=== PATIENT | male | born 1960 | race Caucasian/White ===

== ENCOUNTER 2017-04-16 05:09 | Inpatient (IN) | payer OTHER ==
[~2017-04-16] VITALS: Ht 182.9 cm; Wt 152.4 kg
[~2017-04-16 05:09] MED LIST: ACETAMINOPHEN325 M1 PO; ADULT LOW DOSE81 M1 PO; ALLOPURINOL300 MG PO; AMBIEN5 MG PO; AMLODIPINE BESYL5 MG PO; APIDRA100 UNIT/1 SC; ASPIR 8181 M1 PO; ATORVASTATIN CA10 MG PO; AZOPT 1% O200 DROP/1 BOTH EYES; BENADRYL ITCH28.3 GM TP; BREO ELLIPTA 21 EACH IH; CALCIUM 600 +1 EAC2 PO; CELEXA10 MG PO; CELEXA20 MG PO; CLONAZEPAM0.5 MG PO; COLCRYS0.6 MG PO; COZAAR100 MG PO; CYANOCOBALAM1000 MCG PO; DILAUDID2 MG PO; DULCOLAX10 MG PR; ENDOCET 7.5-321 EACH PO; ENEMA133 M2 PR; FAMOTIDINE40 MG PO; FENOFIBRATE145 M1 PO; FENOFIBRATE160 M1 PO; FENTANYL1 EAC5 TD; FERROUS SULFAT325 MG PO; FLEXERIL10 MG PO; GABAPENTIN100 MG PO; GABAPENTIN300 MG PO; GLIMEPIRIDE4 MG PO; GRALISE300 MG PO; JANUVIA100 MG PO; LANTUS 10100 UNITS/ SC; LANTUS 3 M100 UNITS1 SC; LISINOPRIL20 MG PO; LOSARTAN POTASS50 MG PO; METFORMIN HCL1000 M1 PO; MILK OF MAGN PO; MOBIC7.5 MG PO; MOTRIN800 MG PO; NAPROXEN500 M1 PO; NORCO 5/3251 TABLET PO; NORTRIPTYLINE H25 MG PO; OMEPRAZOLE20 MG PO; ONDANSETRON HCL4 MG PO; OXYBUTYNIN CHLO10 MG PO; PANTOPRAZOLE SO40 MG PO; POLYETHYLENE GL17 GM PO; PRAVACHOL40 MG PO; PRAVASTATIN SOD80 MG PO; PROTONIX40 MG PO; QUETIAPINE FUMA50 MG PO; RESTASIS 01 DROP/0.4 BOTH EYES; SENNA8.6 MG PO; SERTRALINE HCL50 MG PO; SKELAXIN800 MG PO; SPIRIVA1 INHALATI IH; TORADOL10 MG PO; ULTRAM50 MG PO; VENLAFAXINE HCL75 MG PO; VENTOLIN HFA18 GM IH; VOLTAREN 1% GE100 GM TP; ZESTRIL2.5 MG PO; ZUPLENZ4 MG PO; ZYLOPRIM300 MG PO
[2017-04-16 05:27] LABS: POINT-OF-CARE METER ID UU13113778
[2017-04-16 06:24] LABS: MCH 30.2 PG (29.0-34.0); MCHC 33.9 G/DL (30.0-36.0); MEAN PLAT.VOLUME 10.8 uM^3 (9.0-12.4); PLATELET COUNT 260 K/uL (156-360); RBC DIS.WIDTH-CV 13.2 % (11.8-14.6); RBC DIS.WIDTH-SD 42.7 % (39-53); RED BLOOD COUNT 5.17 M/uL (4.00-5.50); WHITE BLOOD COUNT 9.9 K/uL (4.1-10.2)
[2017-04-16] MEDS ORDERED: NEURONTIN300 MG PO (06:25)
[2017-04-16] MEDS ORDERED: LANTUS 3 M100 UNITS1 SQ (06:28)
[2017-04-16] MEDS ORDERED: FINASTERIDE5 MG PO (06:31)
[2017-04-16] MEDS ORDERED: NOVOLOG 10100 UNITS/ SQ (06:31)
[2017-04-16 06:32] LABS: CHLORIDE 102 mEq/L (99-109); POTASSIUM 3.9 mEq/L (3.7-5.4); SODIUM 139 mEq/L (136-147)
[2017-04-16] MEDS ORDERED: ASPIRIN81 M2 PO (06:32)
[2017-04-16 06:34] LABS: GLUCOSE 206 mg/dL (70-99)
[2017-04-16 06:35] LABS: ANION GAP 13 MEQ/L (2-14)
[2017-04-16 06:36] LABS: TOTAL BILIRUBIN 0.4 mg/dL (0.0-1.0)
[2017-04-16 06:37] LABS: ALKALINE PHOSPHATASE 75 IU/L (3-129)
[2017-04-16 06:38] LABS: GFR ESTIMATE (CALCULATED) 55 mL/min/
[2017-04-16 06:39] LABS: UREA NITROGEN (BUN) 19 mg/dL (9-23)
[2017-04-16 06:41] LABS: LIPASE 18 U/L (1.0-51.0)
[2017-04-16 07:02] LABS: TROP-I INTERPRETATION NEGATIVE; TROPONIN-I < 0.01 ng/mL (0.0-0.30)
[2017-04-16 07:04] LABS: ADD MIUA? YES; BILIRUBIN NEGATIVE; BLOOD NEGATIVE; COLOR YELLOW ((YELLOW)); GLUCOSE (STRIP) >=500; KETONES NEGATIVE; LEUKOCYTES NEGATIVE; NITRITE NEGATIVE; PROTEIN (STRIP) 100; SPECIFIC GRAVITY 1.018 (1.000-1.030); UROBILINOGEN 0.2 MG/DL (0.2-1.0)
[2017-04-16 07:14] LABS: BACTERIA NONE SEEN /HPF; EPITHELIAL CELLS NONE SEEN /HPF; MUCUS TRACE /LPF; RED BLOOD CELLS 0-5 /HPF (0-5); UCUL ADDED? NO; WHITE BLOOD CELLS 0-5 /HPF (0-5)
[2017-04-16 08:12] LABS: CARBON DIOXIDE (BICARBONATE) 30.3 MEQ/L (20-31)
[2017-04-16 10:20] VITALS: BP 173/91
[2017-04-16] MEDS ORDERED: LOTRIMIN AF24 GM TP (14:52)
[2017-04-16 14:57] VITALS: BP 166/77
[2017-04-16 18:13] VITALS: BP 178/82
[2017-04-16 19:55] VITALS: BP 136/80
[2017-04-16 23:08] VITALS: BP 129/77
[2017-04-16 23:35] LABS: POINT-OF-CARE METER ID UU13113725
[2017-04-17 04:09] VITALS: BP 109/56
[2017-04-17 06:44] LABS: HEMATOCRIT 42.7 % (38.0-50.0); MCH 31.5 PG (29.0-34.0); MCHC 34.2 G/DL (30.0-36.0); MCV 92.2 FL (86-99); MEAN PLAT.VOLUME 11.1 uM^3 (9.0-12.4); PLATELET COUNT 245 K/uL (156-360); RBC DIS.WIDTH-CV 13.9 % (11.8-14.6); RBC DIS.WIDTH-SD 46.7 % (39-53); RED BLOOD COUNT 4.63 M/uL (4.00-5.50); WHITE BLOOD COUNT 6.6 K/uL (4.1-10.2)
[2017-04-17 07:10] LABS: ANION GAP 8 MEQ/L (2-14); CHLORIDE 106 MEQ/L (99-109); GFR ESTIMATE (CALCULATED) 41 mL/min/; GLUCOSE 224 mg/dL (70-99); POTASSIUM 4.6 MEQ/L (3.7-5.4); SAMPLE HEMOLYSIS CHECK 0; SAMPLE ICTERIC CHECK 0; SAMPLE LIPEMIA CHECK 0; SODIUM 143 MEQ/L (136-147); UREA NITROGEN (BUN) 23 mg/dL (9-23)
[2017-04-17 08:51] VITALS: BP 131/69
[2017-04-17 09:35] LABS: Estimated Average Glucose 232 mg/dL (70-123); HEMOGLOBIN A1c (GLYCOHEMOGLOB) 9.7 % HGB (Below 5.7)
[2017-04-17 11:46] VITALS: BP 118/78
[2017-04-17 11:52] LABS: POINT-OF-CARE METER ID UU13113725
[2017-04-17 15:43] VITALS: BP 149/69
[2017-04-17 15:49] LABS: POINT-OF-CARE METER ID UU13113725
[2017-04-17 20:16] VITALS: BP 142/65
[2017-04-17 22:56] VITALS: BP 111/51
[2017-04-17 23:26] LABS: POINT-OF-CARE METER ID UU13113725
[2017-04-18 05:34] LABS: POINT-OF-CARE METER ID UU13113725
[2017-04-18 08:13] VITALS: BP 147/69
[2017-04-18 09:36] LABS: ANION GAP 7 MEQ/L (2-14); CHLORIDE 109 MEQ/L (99-109); GFR ESTIMATE (CALCULATED) 47 mL/min/; GLUCOSE 180 mg/dL (70-99); POTASSIUM 4.1 MEQ/L (3.7-5.4); SAMPLE HEMOLYSIS CHECK 0; SAMPLE ICTERIC CHECK 0; SAMPLE LIPEMIA CHECK 0; SODIUM 142 MEQ/L (136-147); UREA NITROGEN (BUN) 16 mg/dL (9-23)
[2017-04-18 12:17] VITALS: BP 159/87
[2017-04-18 16:17] VITALS: BP 148/72
[2017-04-18 20:19] VITALS: BP 153/72
[2017-04-18 23:03] VITALS: BP 143/65
[2017-04-19 07:26] LABS: POINT-OF-CARE METER ID UU13113725
[2017-04-19 07:39] VITALS: BP 170/82
[2017-04-19 08:00] LABS: HEMATOCRIT 39.8 % (38.0-50.0); MCH 31.3 PG (29.0-34.0); MCHC 34.2 G/DL (30.0-36.0); MCV 91.7 FL (86-99); MEAN PLAT.VOLUME 10.6 uM^3 (9.0-12.4); PLATELET COUNT 234 K/uL (156-360); RBC DIS.WIDTH-CV 13.4 % (11.8-14.6); RBC DIS.WIDTH-SD 45.7 % (39-53); RED BLOOD COUNT 4.34 M/uL (4.00-5.50); WHITE BLOOD COUNT 6.9 K/uL (4.1-10.2)
[2017-04-19 08:20] LABS: ANION GAP 7 MEQ/L (2-14); CHLORIDE 107 MEQ/L (99-109); POTASSIUM 4.2 MEQ/L (3.7-5.4); SAMPLE HEMOLYSIS CHECK 0; SAMPLE ICTERIC CHECK 0; SAMPLE LIPEMIA CHECK 0; SODIUM 139 MEQ/L (136-147)
[2017-04-19 08:26] LABS: GFR ESTIMATE (CALCULATED) 51 mL/min/; GLUCOSE 190 mg/dL (70-99); UREA NITROGEN (BUN) 11 mg/dL (9-23)
[2017-04-19 10:31] VITALS: BP 185/90
[2017-04-19 11:50] LABS: POINT-OF-CARE METER ID UU13113725
[2017-04-19] MEDS ORDERED: TAMSULOSIN HCL0.4 MG PO (12:10)
[2017-04-19] MEDS ORDERED: AMLODIPINE BESYL5 MG PO (12:10)
== END 2017-04-19 15:53 | disposition home health service (06) | DRG 389 ==
LOC: EME 05:09 → EDOF 08:43 → ENRESERV 08:44 → 5EAST 09:57
PROVIDERS: Internal Medicine; Nurse Practitioner Adult Health; Physician Assistant
DX: K56.60 Unspecified intestinal obstruction (principal); I12.9 Hypertensive chronic kidney disease with stage 1 through stage 4 chronic kidney disease, or unspecified chronic kidney disease; N18.2 Chronic kidney disease, stage 2 (mild); E11.22 Type 2 diabetes mellitus with diabetic chronic kidney disease; E11.65 Type 2 diabetes mellitus with hyperglycemia; I71.2 Thoracic aortic aneurysm, without rupture; R74.0 Nonspecific elevation of levels of transaminase and lactic acid dehydrogenase [LDH]; E78.5 Hyperlipidemia, unspecified; E78.00 Pure hypercholesterolemia, unspecified; G47.33 Obstructive sleep apnea (adult) (pediatric); J45.909 Unspecified asthma, uncomplicated; K21.9 Gastro-esophageal reflux disease without esophagitis; N32.89 Other specified disorders of bladder; N40.1 Benign prostatic hyperplasia with lower urinary tract symptoms; R31.0 Gross hematuria; R33.8 Other retention of urine; M10.9 Gout, unspecified; F32.9 Major depressive disorder, single episode, unspecified; F41.9 Anxiety disorder, unspecified; E66.01 Morbid (severe) obesity due to excess calories; Z68.42 Body mass index [BMI] 45.0-49.9, adult; Z79.4 Long term (current) use of insulin; Z79.82 Long term (current) use of aspirin; Z79.84 Long term (current) use of oral hypoglycemic drugs; Z86.010 Personal history of colon polyps; Z91.19 Patient's noncompliance with other medical treatment and regimen
CPT/HCPCS: 71010; 71275; 74020; 74177; 80048; 80053; 81003; 82010; 82803; 82948; 83036; 83605; 83690; 83880; 84484; 85027; 93005; 94799; 99281; 99285; J0360; J1170; J1644; J1815; J2060; J2405; J2543; J3010; J3480; J7050; J7120; S0028

== ENCOUNTER → 2017-12-07 | Outpatient (CLI) | payer OTHER ==
[~2017-12-07] MED LIST changes: +ASPIRIN81 M2 PO; +FINASTERIDE5 MG PO; +LANTUS 3 M100 UNITS1 SQ; +LOTRIMIN AF24 GM TP; +NEURONTIN300 MG PO; +NOVOLOG 10100 UNITS/ SQ; +TAMSULOSIN HCL0.4 MG PO
== END | disposition home or self-care (01) ==
LOC: NUC 11-30 08:30
DX: I25.9 Chronic ischemic heart disease, unspecified (principal); E11.9 Type 2 diabetes mellitus without complications; I10 Essential (primary) hypertension; I71.9 Aortic aneurysm of unspecified site, without rupture; Z82.49 Family history of ischemic heart disease and other diseases of the circulatory system
CPT/HCPCS: 78452; 78999; 93017; A9500; J2785